=== PATIENT | female | born 1975 | race Caucasian/White ===

== ENCOUNTER → 2023-06-05 10:35 | Outpatient (REF) | payer OTHER, SELFPAY | LOC: HWRAD 10:35 | PROVIDERS: ATTENDING PHYSICIAN Physician Assistant Medical; FAMILY PHYSICIAN Family Medicine | DX: M25.562 Pain in left knee (principal); M25.561 Pain in right knee | CPT/HCPCS: 73564 ==

== ENCOUNTER → 2023-06-18 06:57 | Outpatient (REF) | payer OTHER, SELFPAY | LOC: MRI 3T 06:57 | PROVIDERS: ATTENDING PHYSICIAN Physician Assistant Medical | DX: M25.561 Pain in right knee (principal) | CPT/HCPCS: 73721 ==

== ENCOUNTER → 2024-01-12 11:49 | Outpatient (REF) | payer OTHER, SELFPAY | LOC: WDC 11:49 | PROVIDERS: ATTENDING PHYSICIAN Family Medicine | DX: Z12.31 Encounter for screening mammogram for malignant neoplasm of breast (principal) | CPT/HCPCS: 77063; 77067 ==

== ENCOUNTER → 2024-04-01 08:45 | Outpatient (REF) | payer OTHER, SELFPAY | LOC: WDC 08:45 | PROVIDERS: ATTENDING PHYSICIAN Family Medicine; FAMILY PHYSICIAN Family Medicine | DX: R92.30 Dense breasts, unspecified (principal) | CPT/HCPCS: 76641 ==

== ENCOUNTER 2025-01-12 08:55 | Emergency (ER) | payer OTHER, SELFPAY ==
[2025-01-12 09:04] VITALS: BP 137/79
--- NOTE | 2025-01-12 10:05 | ED.GENMED ---
History of Present Illness
General
Chief Complaint: BURN-MINOR
Source: patient
Exam Limitations: none
Time Seen by Provider: 01/12/25 09:55
Nursing documentation reviewed up to this point in time: agreed with
History of Present Illness
History of Present Illness:
Patient presents to ED secondary to burn injury on her chest, which occurred at work. Patient states that she was holding hot water, went to her extremity opened towards her, causing the water to spill onto her chest. Denies any other injury.
Patient otherwise is healthy.
Past History
Past History
ED Past Medical History: Psychiatric (Anxiety) and Other (IBS, anemia, Gilbert's disease)
ED Past Surgical History: , Gynecological (D and E, hysterectomy) and Orthopedic (lumbar 04/03)
Social History
Tobacco: Non-smoker
Alcohol: Occasional
Drug: None
Personal:
Living: with family
Employment: Employed
Family History
Family History: Negative Early CAD
Review of Systems
Review of Systems
Allergies reviewed?: Yes
All Other Systems: ROS reviewed and negative except as documented in HPI and ROS
Constitutional: Reports no symptoms
Respiratory: Reports no symptoms
Cardiac: Reports no symptoms
ABD/GI: Reports no symptoms
Musculoskeletal: Reports no symptoms
Skin: Reports other (Burn injury)
Neurological: Reports no symptoms
Phy Exam
Physical Exam
Physical Exam:
Physical Exam
General: no apparent distress, not acutely ill. afebrile
Head: nc/at. eomi
Neck: supple. normal range of motion
Neuro: alert and oriented x 3. no focal neurological deficits
Skin: an approx 2cm x 3cm area of erythema noted over anterior chest wall, without blister formation
Psychiatric: well kept. interactive and cooperative
Extremities: no edema. no calf tenderness.
Course
Vital Signs
Initial and Last Documented VS:
Initial Vital Signs
Temp Pulse Resp BP Pulse Ox
98.0 F 67 16 137/79 98
01/12/25 09:04 01/12/25 09:04 01/12/25 09:04 01/12/25 09:04 01/12/25 09:04
Last Documented Vital Signs
Temp Pulse Resp BP Pulse Ox
98.0 F 67 16 137/79 98
01/12/25 09:04 01/12/25 09:04 01/12/25 09:04 01/12/25 09:04 01/12/25 10:05
MDM/Problems Addressed
MDM/Problems Addressed:
History and exam consistent with likely first-degree thermal injury on chest wall. Patient will be treated conservatively with local wound care, along with application of bacitracin/Neosporin, as well as PCP follow-up.
*Pulse Oximetry
SaO2: 98
Oxygen Mode of Delivery: Room air
Patient hypoxic: no
*Critical Care Note
Total Time (30-74mins, 75-104mins- exclusive of procedures): Not Applicable
ED Attending Note
-
Portions of this chart may have been created with voice recognition software.� Occasional wrong word or��sound alike� substitutions may have occurred due to the inherent limitations of voice recognition software.
Discharge Plan
Departure
Patient Disposition: Home (Routine Discharge)
Date of Disposition: 01/12/25
Time of Disposition: 10:05
Patient with high blood pressure during this ER visit?: Yes
Condition: Good
Discharge Problem:
Burn injury
Instructions: Skin Sandoval (DC)
Prescriptions:
No Action
escitalopram oxalate 5 MG tablet
5 mg PO DAILY Qty: 0
Referrals:
Ravinder Kirk MD [Family Provider, Family Practice]
Activity Restrictions/Additional Instructions:
As discussed, please follow-up with your work comp physician or your primary care physician for reevaluation.
Interventions
Interventions:
*Risk Screen - Suicide Last Done: 01/12/25 09:04
*Neglect/Abuse Screening Last Done: 01/12/25 09:04
*Nursing Disposition Last Done: 01/12/25 10:15
ED-Skin Assessment Last Done: 01/12/25 10:14
Discharge Date and Time
Discharge Date/Time: 01/12/25 10:15
Print Language: CITIZ[place]
== END 2025-01-12 10:15 | disposition home or self-care (01) ==
LOC: EMR 08:55
PROVIDERS: EMERGENCY PHYSICIAN Emergency Medicine; FAMILY PHYSICIAN Family Medicine
DX: T21.01XA Burn of unspecified degree of chest wall, initial encounter (principal); R03.0 Elevated blood-pressure reading, without diagnosis of hypertension; F41.9 Anxiety disorder, unspecified; K58.9 Irritable bowel syndrome, unspecified; E80.4 Gilbert syndrome; X11.8XXA Contact with other hot tap-water, initial encounter; Y99.0 Civilian activity done for income or pay
CPT/HCPCS: 99282